=== PATIENT | female | born 1965 | race Caucasian/White ===

== ENCOUNTER 2016-05-17 10:59 | Emergency (ER) | payer OTHER ==
[2016-05-17 12:12] LABS: HEMOGLOBIN 15.2 gm/dl (12.3-15.3); RED BLOOD COUNT 4.86 M/UL (4.00-5.10)
== END 2016-05-17 17:14 | disposition home or self-care (01) ==
LOC: ER1 10:59
PROVIDERS: Emergency Medicine
DX: S39.012A Strain of muscle, fascia and tendon of lower back, initial encounter (principal); M25.551 Pain in right hip; V49.50XA Passenger injured in collision with unspecified motor vehicles in traffic accident, initial encounter; Y92.410 Unspecified street and highway as the place of occurrence of the external cause
CPT/HCPCS: 36415; 71020; 72131; 73502; 80053; 83690; 84703; 85025; 85610; 85730; 93005; 96360; 99284; Q9962